=== PATIENT | male | born 1990 | race African-American/Black ===

== ENCOUNTER 2021-06-09 04:26 | Emergency (ER) | payer OTHER ==
[~2021-06-09] VITALS: Ht 193 cm; Wt 90.3 kg
[2021-06-09] MEDS ORDERED: diphenhydrAMINE 50MG/ML VIAL (J1200) IV STA (06:36)
[2021-06-09] MEDS ORDERED: METOCLOPRAMIDE INJ 10MG/2ML VIAL (J2765 PER 1) IV ONE (06:40)
[2021-06-09] MEDS ORDERED: KETOROLAC 30 MG/ML 1ML VIAL IV ONE (06:40)
[2021-06-09] MEDS ORDERED: NS 1,000 ML IV ONE (06:40)
[2021-06-09 07:01] LABS: BASO # 0.1 10^3/uL (0.0-0.2); BASO % 1.2 % (0.0-1.0); EOS # 0.7 10^3/uL (0.0-0.5); EOS % 12.2 % (0.0-3.0); HEMATOCRIT 44.7 % (42.0-52.0); HEMOGLOBIN 14.8 g/dl (13.5-17.5); LYMPH # 1.3 10^3/uL (1.5-5.0); LYMPH % 22.9 % (24.0-44.0); MEAN CORPUSCULAR HEMOGLOBIN 29.5 pg (27.0-33.0); MEAN CORPUSCULAR HGB CONC 33.1 g/dl (32.0-36.5); MONO # 0.3 10^3/uL (0.0-0.8); MONO % 5.1 % (2.0-8.0); NEUTROPHILS # 3.3 10^3/uL (1.5-8.5); NEUTROPHILS % 58.4 % (36.0-66.0); PLATELET COUNT, AUTOMATED 199 10^3/uL (150-450); RED BLOOD COUNT 5.02 10^6/uL (4.30-6.10); WHITE BLOOD COUNT 5.7 10^3/uL (4.0-10.0)
--- NOTE | 2021-06-09 07:14 | REPVR ---
PROCEDURE INFORMATION: Exam: CT Head Without Contrast Exam date and time: 06/09/2021 6:36 AM Age: 30 years old Clinical indication: Pain; Headache; Migraine; Aura effect not specified; Additional info: DAVIDSON, vision change TECHNIQUE: Imaging protocol: Computed tomography of the head without contrast. Radiation optimization: All CT scans at this facility use at least one of these dose optimization techniques: automated exposure control; mA and/or kV adjustment per patient size (includes targeted exams where dose is matched to clinical indication); or iterative reconstruction. COMPARISON: No relevant prior studies available. FINDINGS: Brain: There is some subtle peripheral increased density in the left parietal region likely artifactual. No hemorrhage. Unremarkable white matter. No mass effect. Cerebral ventricles: No ventriculomegaly. Paranasal sinuses: Visualized sinuses are unremarkable. No fluid levels. Mastoid air cells: Visualized mastoid air cells are well aerated. Bones/joints: Unremarkable. No acute fracture. Soft tissues: Unremarkable. IMPRESSION: No acute intracranial abnormality. Electronically signed by: Carlitos Kaufman On 06/09/2021 07:14:03 AM
[2021-06-09 08:29] LABS: ERYTHROCYTE SEDIMENTATION RATE 2 mm/hr (0-15)
[2021-06-09 08:30] VITALS: BP 138/78
== END 2021-06-09 08:47 | disposition home or self-care (01) ==
LOC: M ED 04:26
DX: R51.9 Headache, unspecified (principal); R79.82 Elevated C-reactive protein (CRP)
CPT/HCPCS: 70450; 80047; 83735; 85025; 85652; 96361; 96374; 96375; 99284; J1200; J1885; J2765

== ENCOUNTER → 2021-12-15 | Day surgery (SDC) | payer OTHER ==
[~2021-12-15] VITALS: Ht 193 cm; Wt 87.0 kg
[~2021-12-15] MED LIST: ACETAMINOPHEN 1000MG 100ML IV BTL (OFIRMEV) (J0131 PER 10MG) As Ordered ONE; EPINEPHrine INJ 1 MG/ML 1ML AMP XX ONE; HYDROMORPHONE HCL 0.5 MG/ 0.5 ML SYRINGE (J1170 PER 1) IV PRN; IBUP-1114 PO; KETOROLAC 60MG 2ML VIAL As Ordered ONE; LIDOCAINE 1% MDV 20ML VIAL XX ONE; LIDOCAINE 2% 100MG/5ML SDV (FOR ANES.) As Ordered ONE; LR 1,000 ML IV ONE; LR 1,000 ML IV SCH; MIDAZOLAM INJ 2MG/2ML VIAL (J2250 PER 1MG) As Ordered ONE; ONDANSETRON 4MG/2ML VIAL As Ordered ONE; ONDANSETRON 4MG/2ML VIAL IV PRN; OXYC30TA PO; ROCURONIUM BROMIDE 50 MG/5 ML VIAL As Ordered ONE; ROPIvacaine 0.5% 30ML INJECTION (J2795 PER 1MG) XX ONE; SUGAMMADEX SODIUM 500 MG/5 ML VIAL (BRIDION) As Ordered ONE; TRANEXAMIC ACID 100 MG/ML 10ML VIAL As Ordered ONE; VANCOMYCIN 1000MG/20ML VIAL As Ordered ONE; ceFAZolin 2 GM/D5W 50 ML IV BAG (J0690 PER 500MG) As Ordered ONE; dexameTHASONE 10MG/1ML VIAL PRES.FREE (J1100 PER 1MG) XX ONE; dexameTHASONE 4 MG/ML 1ML VIAL (J1100 PER 1MG) As Ordered ONE; fentaNYL 100 MCG/2 ML INJECTION IV PRN; fentaNYL 250 MCG/5 ML INJECTION As Ordered ONE; oxyCODONE 5MG TAB PO PRN; propofoL 200 MG/20 ML VIAL As Ordered ONE
[2021-12-15] MEDS: MIDAZOLAM INJ 2MG/2ML VIAL (J2250 PER 1MG) IV PRN ×2 (16:20→16:25)
[2021-12-15 19:42] VITALS: BP 152/73
== END | disposition home or self-care (01) ==
LOC: M SDC 13:26
PROVIDERS: ATTEND Orthopaedic Surgery
DX: S82.61XA Displaced fracture of lateral malleolus of right fibula, initial encounter for closed fracture (principal); Y30.XXXA Falling, jumping or pushed from a high place, undetermined intent, initial encounter; Y99.1 Military activity; Y92.139 Unspecified place military base as the place of occurrence of the external cause; F17.290 Nicotine dependence, other tobacco product, uncomplicated; Y93.39 Activity, other involving climbing, rappelling and jumping off
CPT/HCPCS: 27792; 27829; 64445; 76000; J0131; J0690; J1100; J1885; J2250; J2405; J3010; J3370